=== PATIENT | female | born 1990 | race Caucasian/White ===

== ENCOUNTER 2019-04-17 15:56 | Inpatient (IN) ==
[2019-04-17] MEDS ORDERED: ZOFRAN IV ONE (17:38)
[2019-04-17] MEDS ORDERED: NS 1,000 ML IV ONE (17:38)
[2019-04-17] MEDS ORDERED: TORADOL IV ONE (17:38)
[2019-04-17 17:43] LABS: URINE SOURCE CLEAN CATCH
[2019-04-17 17:51] LABS: BILIRUBIN URINE NEGATIVE (NEGATIVE); BLOOD URINE NEGATIVE (NEGATIVE); COLOR ORANGE; GLUCOSE URINE NEGATIVE (NEGATIVE); KETONE URINE 20 mg/dL (NEGATIVE); LEUKOCYTES URINE TRACE (NEGATIVE); NITRITE URINE NEGATIVE (NEGATIVE); PROTEIN URINE 100 mg/dL (NEGATIVE); SP GRAVITY URINE 1.037; TURBIDITY URINE TURBID (CLEAR); UROBILINOGEN URINE 3 mg/dL (NORMAL)
[2019-04-17 17:53] LABS: UR EPITHELIAL CELLS >10 /HPF (<10); URINE BACTERIA 3+ /HPF; URINE RBC <10 /HPF (<10); URINE WBC TNTC /HPF (<10)
[2019-04-17 17:59] LABS: BASO# 0.04 X1000 (0.0-0.2); BASO% 0.3 % (0.0-0.8); EOS# 0.19 X1000 (0.0-0.7); EOS% 1.5 % (0.0-10.0); HEMATOCRIT 41.4 % (37.0-47.0); HEMOGLOBIN 13.3 g/dL (12.0-16.0); IMM GRAN# 0.03 X1000 (0.0-0.04); IMM GRAN% 0.2 % (0.0-0.5); LYMPH# 1.14 X1000 (1.2-3.4); LYMPH% 8.7 % (20.5-51.1); MCHC 32.1 g/dL (33-37); MONO# 0.56 X1000 (0.11-0.59); MONO% 4.3 % (1.7-9.3); MPV 9.5 FL (7.4-10.4); NEUT# 11.09 X1000 (1.4-6.5); PLT 325 X1000 (130-400); RBC 4.93 XMIL (4.2-5.4); RDW 15.1 % (11.5-14.5); WBC 13.05 X1000 (4.8-10.8)
[2019-04-17 18:00] LABS: UR AMPHETAMINES QUAL NONE DETECTED (NONE DETECT); UR BARBITUATES QUAL NONE DETECTED (NONE DETECT); UR BENZODIAZEPIN QUAL NONE DETECTED (NONE DETECT); UR CANNABINOIDS QUAL NONE DETECTED (NONE DETECT); UR COCAINE QUAL NONE DETECTED (NONE DETECT); UR METHADONE QUAL NONE DETECTED (NONE DETECT); UR OPIATES QUAL NONE DETECTED (NONE DETECT); UR OXYCODONE QUAL NONE DETECTED (NONE DETECT); UR PCP QUAL NONE DETECTED (NONE DETECT)
--- NOTE | 2019-04-17 18:06 | PROVIDER DOCUMENTATION ---
This chart was entered by Lauren Haynes Scribe, acting as scribe for Celestina Mejia MD. HPI-Abdominal Pain/GI Problem <SamJona Del Rio. - Last Filed: 04/17/19 20:08> - General Source: patient - History of Present Illness-ABD Nature of Presenting Problems: Patient is a 28 y/o female presenting to the ED today c/o N/V and abdominal pain. Patient reports onset of symptoms 2-3 days ago. Patient reports history of Crohn's. Patient reports it has been " a few months" since her last flare-up. Patient reports she was taking Remicaid but stopped and has not been taking any medication to manage her Crohn's since. Patient reports she has not had a bowel movement in a few days and thinks she may be constipated. Patient denies all other signs/symptoms. Abdominal Pain Onset Location: reports: RLQ Quality of Pain: reports: aching Onset/Duration: reports: 3 days ago Timing: reports: still present Associated Symptoms: reports: constipation, nausea, vomiting. denies: diarrhea Last BM: 3 days ago Bruising or Bleeding Gums?: No Similar Symptoms Previously?: No Recently seen or treated by another doctor?: No <Celestina Mejia - Last Filed: 04/18/19 08:45> - General Chief Complaint: Nausea/Vomiting Stated Complaint: N/V Time Seen by Provider: 04/17/19 17:13 Allergies/Adverse Reactions: Patient Allergies Allergy/AdvReac Type Severity Reaction Status Date / Time Sulfa (Sulfonamide Allergy Unknown Verified 06/29/17 17:06 Antibiotics) Home Medications: Home Medication List Medication Instructions Recorded Confirmed Last Taken Type Amoxicillin 500 mg PO TID 04/17/19 04/17/19 1 Day Ago History ~04/16/19 Buprenorphine HCl/Naloxone HCl 1 ea SUBLINGUAL QAM 04/17/19 04/17/19 04/17/19 History [Suboxone 8 mg/2 mg Sl Film] Buspirone [Buspar] 15 mg PO BID 04/17/19 04/17/19 1 Day Ago History ~04/16/19 Escitalopram Oxalate [Lexapro] 10 mg PO QAM 04/17/19 04/17/19 1 Day Ago History ~12/29/19 Omeprazole 40 mg PO QAM 04/17/19 04/17/19 1 Day Ago History ~04/16/19 Review of Systems - Adult - REVIEW OF SYSTEMS - ADULT Constitutional: denies: chills, fever Eyes: reports: no symptoms reported Ears, Nose, Mouth & Throat: reports: no symptoms reported Cardiovascular: denies: chest pain Respiratory: denies: cough, shortness of breath Gastrointestinal: reports: abdominal pain, constipation, nausea, vomiting. faisal es: diarrhea Genitourinary: reports: no symptoms reported Musculoskeletal: reports: no symptoms reported Integumentary: reports: no symptoms reported Neurological: reports: no symptoms reported Psychiatric: reports: no symptoms reported Endocrine: reports: no symptoms reported Hematologic/Lymphatic: reports: no symptoms reported Allergic/Immunologic: reports: no symptoms reported All Other Systems: Reviewed and Negative <Celestina Mejia - Last Filed: 04/18/19 08:45> Past History - Adult - PAST MEDICAL HISTORY-ADULT Review of Records: reports: Old Records Reviewed, Nursing Assessment Review, Medications Reviewed, Social history reviewed & non-contributory. Major Childhood Illnesses: reports: denies history Cardiovascular: reports: denies history Respiratory: reports: denies history Gastrointestinal: reports: Crohn's Obstetrical/Gynecological: reports: denies history Genitourinary: reports: denies history Musculoskeletal: reports: denies history Neurological: reports: denies history Psychiatric: reports: denies history Endocrine/Immune: reports: denies history Other Conditions: reports: denies history <Celestina Mejia - Last Filed: 04/18/19 08:45> Physical Exam-General - PHYSICAL EXAM-ADULT Initial Vital Signs Reviewed: Yes - CONSTITUTIONAL General Appearance: appears well, alert, no apparent distress - EYES Eyes: PERRL/EOMI - HEAD, EARS, NOSE, MOUTH & THROAT HENMT: normocephalic/atraumatic, moist mucous membranes - NECK Neck: non-tender, full range of motion, supple - RESPIRATORY Respiratory: lungs clear, normal breath sounds, no respiratory distress, no accessory muscle use - CARDIOVASCULAR Cardiovascular: regular rate, rhythm, no edema - GASTROINTESTINAL (ABDOMEN) Abdominal Exam: soft, tenderness (right, lower abdomen) - LYMPHATIC Lymphatic: no adenopathy - MUSCULOSKELETAL Back Exam: normal inspection, no CVA tenderness, no vertebral tenderness Extremity: normal range of motion, non-tender, normal gait, normal inspection - SKIN Integumentary: normal color, normal turgor, warm/dry - NEUROLOGIC Neurologic: grossly normal - PSYCHIATRIC Psych/Mental Status: normal mood/affect, normal thought content, normal thought process <Celestina Mejia - Last Filed: 04/18/19 08:45> Progress - PLAN OF CARE/RESULTS Progress/Plan/Lab Results: Vital Signs - 8 hr 04/17/19 16:05 Temperature 98.6 F Pulse Rate 77 Respiratory Rate 18 Blood Pressure 92/63 O2 Sat by Pulse Oximetry 96 Bedside Urine ED: Urine Bedside Start: 04/17/19 17:32 Freq: NOW Status: Active Protocol: Activity Type Activity Date Activity User E-Sign Co-Sign Detail Recorded Client Recorded Date Recorded By Document 04/17/19 17:33 [id number] 04/17/19 17:34 [id number] 04/17/19 17:33 Point of Care [Bedside Point of Care] -Lot # [id number] - Results Negative -Control Line Visible? Yes ED: Urine Bedside Start: 04/17/19 17:36 Freq: ORDERED Status: Active Protocol: Activity Type Activity Date Activity User E-Sign Co-Sign Detail Recorded Client Recorded Date Recorded By Document 04/17/19 17:49 [id number] 04/17/19 17:49 [id number] 04/17/19 17:49 -Lot # [id number] - Results Negative -Control Line Visible? Yes Laboratory Results - last 24 hr 04/17/19 04/17/19 04/17/19 17:30 17:30 17:46 WBC 13.05 H RBC 4.93 Hgb 13.3 Hct 41.4 MCV 84.0 MCH 27.0 MCHC 32.1 L RDW Std Deviation 15.1 H Plt Count 325 MPV 9.5 Immature Gran % (Auto) 0.2 Neut % (Auto) 85.0 H Lymph % (Auto) 8.7 L [place] % (Auto) 4.3 Eos % (Auto) 1.5 Baso % (Auto) 0.3 Immature Gran # (Auto) 0.03 Neut # (Auto) 11.09 H Lymph # (Auto) 1.14 L [place] # (Auto) 0.56 Eos # (Auto) 0.19 Baso # (Auto) 0.04 Sodium Potassium Chloride Carbon Dioxide Anion Gap BUN Creatinine Estimated GFR/1.73 m2 BUN/Creatinine Ratio Glucose Calculated Osmolality Calcium Total Bilirubin AST ALT Alkaline Phosphatase Total Protein Albumin Globulin Albumin/Globulin Ratio Lipase Urine Source CLEAN CATCH Urine Color ORANGE Urine Turbidity TURBID Urine pH 6.0 Ur Specific [place] 1.037 Urine Protein 100 A Ur Glucose (Stick) NEGATIVE Ur Ketones (Stick) 20 A Urine Blood NEGATIVE Urine Nitrite NEGATIVE Urine Bilirubin NEGATIVE Urobilinogen Dipstick 3 A Urine Leukocytes TRACE A Urine WBC (Auto) TNTC A Urine RBC (Auto) <10 U Epithel Cells (Auto) >10 A Urine Bacteria (Auto) 3+ Urine Crystals Not Reportable Small Round Cells Not Reportable Urine Casts Not Reportable Urine Yeast-like Cells Not Reportable Urine Opiates Screen NONE DETECTED Ur Oxycodone Screen NONE DETECTED Ur Methadone, Qual NONE DETECTED Ur Barbiturates Screen NONE DETECTED Ur Phencyclidine Scrn NONE DETECTED Ur Amphetamines Screen NONE DETECTED U Benzodiazepines Scrn NONE DETECTED Urine Cocaine Screen NONE DETECTED U Cannabinoids Screen NONE DETECTED 04/17/19 17:46 WBC RBC Hgb Hct MCV MCH MCHC RDW Std Deviation Plt Count MPV Immature Gran % (Auto) Neut % (Auto) Lymph % (Auto) [place] % (Auto) Eos % (Auto) Baso % (Auto) Immature Gran # (Auto) Neut # (Auto) Lymph # (Auto) [place] # (Auto) Eos # (Auto) Baso # (Auto) Sodium 136 Potassium 4.7 Chloride 100 Carbon Dioxide 21 L Anion Gap 15 BUN 7 L Creatinine 0.5 Estimated GFR/1.73 m2 > 60 BUN/Creatinine Ratio 14 Glucose 117 H Calculated Osmolality 271 Calcium 9.1 Total Bilirubin 0.28 AST 58 H ALT 38 H Alkaline Phosphatase 80 Total Protein 7.4 Albumin 3.9 Globulin 3.5 Albumin/Globulin Ratio 1.1 Lipase 22 Urine Source Urine Color Urine Turbidity Urine pH Ur Specific [place] Urine Protein Ur Glucose (Stick) Ur Ketones (Stick) Urine Blood Urine Nitrite Urine Bilirubin Urobilinogen Dipstick Urine Leukocytes Urine WBC (Auto) Urine RBC (Auto) U Epithel Cells (Auto) Urine Bacteria (Auto) Urine Crystals Small Round Cells Urine Casts Urine Yeast-like Cells Urine Opiates Screen Ur Oxycodone Screen Ur Methadone, Qual Ur Barbiturates Screen Ur Phencyclidine Scrn Ur Amphetamines Screen U Benzodiazepines Scrn Urine Cocaine Screen U Cannabinoids Screen Orders Category Date Time Status ED: Urine Bedside ORDERED Care 04/17/19 17:36 Active ED: Urine Bedside NOW Care 04/17/19 17:[address] ABD/PELVIS W/IV CONT ONLY [CT] Stat Exams 04/17/19 17:36 Completed CBC WITH ELECTRONIC DIFF [HEME] Stat Lab 04/17/19 17:46 Completed COMPREHENSIVE METABOLIC PANEL [CHEM] Stat Lab 04/17/19 17:46 Completed LIPASE [CHEM] Stat Lab 04/17/19 17:46 Completed URINALYSIS W/POSS RFLX CULT [URINALYSIS] Stat Lab 04/17/19 17:30 Completed URINE CULTURE [RM] Routine Lab 04/17/19 17:30 Received URINE DRUG SCREEN Stat Lab 04/17/19 17:30 Completed URINE MANUAL MICROSCOPIC [URINALYSIS] Stat Lab 04/17/19 17:30 Completed 0.9% Sodium Chloride Inj [Ns] 1,000 ml Med 04/17/19 17:38 Discontinued IV 999 mls/hr CefTRIAXONE [Rocephin] 1 gm Med 04/17/19 18:23 Discontinued 0.9% Sodium Chloride Inj [Ns] 50 ml IV NOW Ketorolac [Toradol] Med 04/17/19 17:38 Discontinued 30 mg IV NOW ONE Ondansetron [Zofran] Med 04/17/19 17:38 Discontinued 4 mg IV NOW ONE Result Diagrams: 04/17/19 17:46 04/17/19 17:46 - REASSESSMENT Reassessment #1 Time Reassessed: 19:35 Status: unchanged Reassessment Comment: distended tender abdomen, awaiting CT report - CT/MRI 1 CT Study: Abdomen, Pelvis CT Results: small bowel obstruction with stricture - CONSULTS/PCP/HOSPITALIST Notification #1 *Consult/PCP/Hospitalist*: Dr. Mar Time Discussed: 19:45 Reason/Comments: consult GI #2 Consult: Dr. Butler, GI hotel operation manager Time Discussed: 19:50 Reason/Comments: admit to hospitalist, consult Dr. Khan Consult Disposition: Admit #3 Consult: Dr. Shrestha, hospitalist Time Discussed: 20:00 Consult Disposition: Admit <Jona Vargas - Last Filed: 04/17/19 20:08> - PLAN OF CARE/RESULTS Progress/Plan/Lab Results: Vital Signs - 8 hr 04/17/19 16:05 Temperature 98.6 F Pulse Rate 77 Respiratory Rate 18 Blood Pressure 92/63 O2 Sat by Pulse Oximetry 96 Result Diagrams: 04/18/19 06:44 04/18/19 06:44 - CHANGE OF SHIFT REPORT (ED Provider) 1 Report Given and Care Transferred to:: Dr Vargas Time of Transfer: 19:00 Items Pending: CT/MRI Results <Celestina Mejia - Last Filed: 04/18/19 08:45> Departure - Departure Date of Disposition Decision: 04/17/19 Time of Disposition Decision: 20:10 Certified Medical Emergency: Emergent <Jona Vargas - Last Filed: 04/17/19 20:08> - Departure Certified Medical Emergency: Emergent - Critical Care Note This patient required my direct & personal management of CC.: No <Celestina Mejia - Last Filed: 04/18/19 08:45> - Departure DIAGNOSIS: Small bowel obstruction, Colonic stricture Crohn disease Qualifiers: Gastrointestinal tract location: small intestine Digestive disease complication type: with intestinal obstruction Qualified Code(s): K50.012 - Crohn's disease of small intestine with intestinal obstruction UTI (urinary tract infection) Qualifiers: Urinary tract infection type: site unspecified Hematuria presence: without hematuria Qualified Code(s): N39.0 - Urinary tract infection, site not specified Disposition: ADMITTED INPATIENT 09 Condition: Stable Attestation - Physician/ TRE Attestation Patient care was provided by Advanced Practice Provider:: No The physician spent face to face time with patient:: Yes Advanced Practice Provider documentation review:: Supervising physician onsite and consulted in the evaluation and care of this patient. The physician did have a face to face encounter with the patient. <Celestina Mejia - Last Filed: 04/18/19 08:45> This chart was documented by the indicated scribe, (Lauren Haynse Scribe) and accurately reflects the services I performed and decisions made by Jackie cavanaugh Rachel M., MD, as attested by the provider's signature.
[2019-04-17] MEDS ORDERED: ROCEPHIN 1 GM in NS 50 ML IV ONE (18:23)
[2019-04-17 18:44] LABS: AGAP 15; ALB/GLOB RATIO 1.1; ALBUMIN 3.9 g/dL (3.5-5.0); ALKALINE PHOSPHATASE 80 U/L (32-104); BUN 7 mg/dL (8-22); CALCIUM 9.1 mg/dL (8.8-10.2); CHLORIDE 100 mmol/L (98-107); COSMO 271; CREATININE 0.5 mg/dL (0.5-0.9); ESTIMATED GFR > 60; GLUCOSE 117 mg/dL (70-104); GOT 58 U/L (10-30); GPT 38 U/L (10-36); LIPASE 22 U/L (13-60); POTASSIUM 4.7 mmol/L (3.5-5.1); SODIUM 136 mmol/L (136-145); TCO2 21 mmol/L (25-35); TOTAL BILIRUBIN 0.28 mg/dL (0.20-1.00); TOTAL PROTEIN 7.4 g/dL (6.3-8.3)
--- NOTE | 2019-04-17 19:27 | Diag Imaging Result Doc PS360 ---
EXAM: CT ABD/PELVIS W/IV CONT ONLY 04/17/2019 HISTORY: abd pain, Crohn's TECHNIQUE: This exam was performed using automated exposure control, adjustment of mA or kV according to patient size, and/or use of iterative reconstruction technique. COMMENT: The visualized portion of the chest is unremarkable and unchanged since the previous study of 06/29/2017. The liver, spleen, adrenal glands, and pancreas are within normal limits. There has been cholecystectomy. There is some retained fluid in the stomach particularly in the fundus. The kidneys are without evidence of hydronephrosis or mass. The aorta is not distended. There is marked dilatation of small bowel loops proximal to the terminal ileum. There has been apparent resection of the terminal ileum with an anastomosis near the ileocecal valve. There is also apparently been appendectomy. There is a hernia in the right lower quadrant into which portions of the ascending colon herniate. Previously there was only fat in this hernia. The colon is not distended. Pelvis: There is some stool in the rectum. There is a small amount of free fluid in the cul-de-sac. The urinary bladder is not distended. The regional skeleton appears to be intact. IMPRESSION: Partial small bowel obstruction due to stricture in the distal ileum. Electronically signed by Kemar Ramirez 04/17/2019 7:25 PM
[2019-04-17] MEDS ORDERED: HURRICAINE SPRAY TOP ONE (20:50)
--- NOTE | 2019-04-17 21:57 | Diag Imaging Result Doc PS360 ---
EXAM: CHEST-PORTABLE 04/17/2019 HISTORY: tube placement TECHNIQUE: AP portable at 2146 COMMENT: There is an NG tube with its tip in the stomach. Lungs are clear and the heart and primary vascularity are within normal limits. IMPRESSION: No acute disease. Electronically signed by Kemar Ramirez 04/17/2019 9:55 PM
[2019-04-17] MEDS ORDERED: OFIRMEV 1000 MG/ISOTONIC SOLN 1,000 MG/100 ML BOTTLE IV PRN (23:22)
[2019-04-17 23:24] LABS: URINE SOURCE CLEAN CATCH
[2019-04-17 23:28] LABS: BILIRUBIN URINE NEGATIVE (NEGATIVE); BLOOD URINE TRACE (NEGATIVE); COLOR YELLOW; GLUCOSE URINE NEGATIVE (NEGATIVE); KETONE URINE TRACE mg/dL (NEGATIVE); LEUKOCYTES URINE NEGATIVE (NEGATIVE); NITRITE URINE NEGATIVE (NEGATIVE); PH URINE 7.5; PROTEIN URINE 100 mg/dL (NEGATIVE); TURBIDITY URINE CLEAR (CLEAR); UROBILINOGEN URINE 2 mg/dL (NORMAL)
[2019-04-17 23:29] LABS: UR EPITHELIAL CELLS <10 /HPF (<10); URINE BACTERIA NEGATIVE /HPF; URINE RBC <10 /HPF (<10); URINE WBC <10 /HPF (<10)
[2019-04-17] MEDS: NICODERM PATCH TD PRN (23:32)
[2019-04-17] MEDS: ZOFRAN IV PRN (23:32)
[2019-04-17] MEDS: PROTONIX IV SCH (23:32)
[2019-04-18] MEDS ORDERED: CHLORASEPTIC SPRAY MT PRN (00:32)
[2019-04-18] MEDS ORDERED: TYLENOL PR PRN ×2 (01:07→08:00)
[2019-04-18] MEDS ORDERED: OFIRMEV 1000 MG/ISOTONIC SOLN 1,000 MG/100 ML BOTTLE IV ONE (01:20)
[2019-04-18] MEDS: ZOFRAN IV PRN ×5 (03:20→20:46)
[2019-04-18] MEDS: NS 1,000 ML IV SCH ×2 (03:20→16:27)
[2019-04-18] MEDS ORDERED: CLINDAMYCIN 600 MG/D5W 600 MG/50 ML IVPB IV SCH (06:30)
--- NOTE | 2019-04-18 07:18 | HISTORY AND PHYSICAL ---
PRIMARY CARE PROVIDER: Micah Tubbs MD, in [place]. FITNESS CLUB MANAGER: Willis Romeo MD CHIEF COMPLAINT: Abdominal pain with nausea and vomiting. HISTORY OF PRESENT ILLNESS: Ms. Dubose is a 28-year-old female with a past medical history of Crohn's disease. She previously was reportedly taking Remicade for treatment of this, though has taken herself off of this due to she kept having problems with dental infections, specifically dental abscesses. In the past, she has also taken Humira. The patient reports she stopped taking her Remicade a few months ago. She reports her last Crohn's flare up was a few months ago as well. She states that for approximately 2 to 3 days now she has been having generalized abdominal pain that is an achy, burning, and crampy type pain in nature. The patient does report that the pain is the worst in her periumbilical area. She has had associated nausea and vomiting. She denies any diarrhea. Actually, she states she might be constipated. She has not had a bowel movement reportedly in 3 days. She denies any hematemesis, hematochezia, or melena. She does report that her emesis has been brownish yellow in color. She has reported some body aches and chills and denied any known or subjective fever. She denied any headache, dizziness, chest pain, shortness of breath, or cough. The patient reported that she had had some urinary frequency. She reports that she does have a history of getting frequent urinary tract infections. In the ER, the first urinalysis sample that was collected did show greater than 10 epithelial cells. Given this, we did have it re-collected with emphasized instructions given to the patient about how to collect a clean catch urine specimen. Upon recheck urinalysis, it only was positive for protein, trace ketones, and trace blood. It was negative for nitrites, leukocytes, white blood cells, or bacteria. The patient does report that she has some occasional swelling in her legs. Her mother reports that they do appear that they are slightly swollen now, though she does not have any edema noted. She denied any numbness, tingling, or pain in the extremities. Upon reviewing the patient's medication list, it was noted that she had an antibiotic of amoxicillin that was noted. She states that she did just recently start taking this for an abscessed tooth on the right upper side of her mouth. Upon further evaluation in the ER, the patient did have some mild leukocytosis noted with white blood cell count of 13,050, though she has been afebrile since arriving to the ER. A CT of the abdomen and pelvis was performed, which did show that there were some stool in the rectum, and there was a small amount of free fluid in the cul-de-sac. The urinary bladder was not distended. There was a partial small bowel obstruction due to stricture in the distal ileum. An NG tube was placed in the ER. This was confirmed with appropriate placement in the stomach per x-ray. We have placed this to low intermittent wall suction. The patient does have approximately 300 mL of brownish colored gastric content noted to suction canister at bedside. The patient is reporting abdominal pain. She also does have some guarding as well. Dr. Mar with surgery was notified of the patient, as well as Dr. Khan, who is on-call for gastroenterology. The patient has been placed on the surgical floor with telemetry. REVIEW OF SYSTEMS: A 14-point review of systems was conducted with the patient, and all were negative except for pertinent positives mentioned above in the HPI. PAST MEDICAL HISTORY: 1. History of Crohn's disease, previously on Humira and most recently on Remicade. The patient states she took herself off of this due to she was having recurrent problems with dental abscesses and reportedly abscesses near or around her buttock. I am not sure if these are perianal or cutaneous abscesses. 2. Nicotine dependence. 3. History of opioid dependence, currently on Suboxone. 4. History of intraabdominal abscesses in the setting of use of Humira in 2015, requiring prolonged hospitalization, requiring ileostomy and ileostomy reversal. PAST SURGICAL HISTORY: 1. Cholecystectomy. 2. Appendectomy. 3. Partial ileostomy in 2014, and at that time she had intraabdominal abscesses at 3 different spots, followed by ileostomy reversal 3 months later. 4. Fissure repair. SOCIAL HISTORY: The patient is a 1 [id number] smoker. She has smoked for approximately 6 years. Though there was mention in previous history and physical of social alcohol use, she denies any of this in the present. There is a history of marijuana use in the past. She also does have opioid dependency and does take daily Suboxone. FAMILY HISTORY: Positive for her sister having ulcerative colitis and another cousin has ulcerative colitis as well. Her mother and father did not have any known medical problems. ALLERGIES: The patient has allergies to sulfa. HOME MEDICATIONS: 1. Amoxicillin 500 mg p.o. t.i.d. This has reportedly been recently prescribed for treatment of a dental abscess. 2. Suboxone 8 mg 4/2 mg sublingual films 1 p.o. every a.m. 3. BuSpar 15 mg p.o. b.i.d. 4. Lexapro 10 mg p.o. every a.m. 5. Omeprazole 40 mg p.o. every a.m. DIAGNOSTIC DATA: White blood cell count is 13,050, hemoglobin 13.3, hematocrit 41.4, platelet count is 325,000. Sodium 136, potassium 4.7, chloride 100, serum bicarbonate is 21, BUN 7, creatinine 0.5 with a GFR greater than 60, glucose 116, calcium 9.1. Liver function tests within normal limits except ALT is slightly elevated at 58 and AST is slightly elevated at 38. Lipase is 22. Urine drug screen was negative. Urinalysis initial was obtained via clean catch, though did have greater than 10 epithelial cells, there was concern whether it might be a contaminated specimen. We did recollect this with emphasis on correct collection for clean catch specimen to the patient. Recheck urinalysis was positive for protein, trace blood, and keystones, though was negative for nitrites, leukocytes, white blood cells, or bacteria. CT of the abdomen and pelvis did show some stool in the rectum. There was a small amount of free fluid in the cul-de-sac. The urinary bladder was not distended. There was a partial small bowel obstruction due to stricture in the distal ileum. Please see full CT report for all details findings. After NG tube placement, a portable chest x-ray was obtained which did show that the NG tube did have its tip in the stomach. The lungs were clear, and the heart and primary vascularity were within normal limits. These are per Radiology. PHYSICAL EXAMINATION: VITAL SIGNS: Temperature 97.9 degrees, heart rate 93, respirations 20, blood pressure is 109/71, with a MAP of 79, oxygen saturation is 98% on room air. GENERAL: Ms. Dubose is a pleasant 28-year-old female. She was resting in the ER stretcher. She was in no acute distress. She was awake, alert, and able to answer questions appropriately. HEENT: Head atraumatic, normocephalic. Pupils are equal, round, reactive to light, and were 3 mm bilaterally and brisk. Oral mucosa was moist. Oropharynx is clear. The patient does have dental caries noted, as well as some teeth are broken as well. NECK: Supple. Trachea midline. CARDIOVASCULAR: Patient has S1-S2 present. No murmurs, gallops, rubs appreciated. Regular rate and rhythm. PULMONARY: Patient has symmetrical chest expansion bilaterally. Lung sounds are clear to auscultation in bilateral full piña. ABDOMEN: Soft, does not appear to be distended, though the patient does have generalized tenderness noted. She had guarding as well. Whenever I would go to get near her abdomen, whenever I would put my hand or stethoscope near her abdomen. She does report her pain and tenderness are worse in the periumbilical area. EXTREMITIES: No cyanosis or edema noted. Pulse, motor, and sensory were intact in all extremities. Radial and pedal pulses are 2+ bilaterally. INTEGUMENTARY: The patient's skin is pink, warm, and dry. NEUROLOGICAL: Patient is alert and oriented to person, place, time, and situation. She is able move all extremities. There are no focal neurological deficits noted. ASSESSMENT AND PLAN: 1. Partial small bowel obstruction. The patient is reporting abdominal pain and nausea and vomiting for approximately 3 days now. She will be placed nothing by mouth. She has a nasogastric tube placed at this time. It is placed to low intermittent wall suction. We will place orders for as needed antiemetics. We also placed orders for pain medication of Tylenol, and we have continued her Suboxone. We will continue with gentle intravenous hydration with normal saline at 100 mL/hour. We have ordered Protonix intravenously every 24 hours. We have placed a consult with Dr. Mar with surgery. We will await his evaluation and further recommendations for management. 2. History of Crohn's disease. We have placed a consult with Dr. Romeo who she reports follows her for her Crohn's disease. We will continue with treatment as mentioned per number 1 with antiemetics, pain medication, and fluids. We will await gastroenterology evaluation and further recommendations for management. 3. Recent reported diagnosis of a right dental abscess on her upper right side of her mouth. She was recently placed on amoxicillin. This was prescribed on the , though she is not quite sure how many doses of this she has left. Given that she is nothing by mouth at this time, we will place her on intravenous antibiotics for coverage of her dental abscess. 4. Nicotine dependence. We have placed orders for a nicotine patch as needed. We will continue to aids counselor the patient throughout her admission and upon discharge on smoking cessation. 5. History of opioid dependence. We have continued the patient's Suboxone. She was asking for additional pain medicines. I did discuss this with Dr. Shrestha, and he did not want to administer any other additional opioid pain medicines at this time. I did speak to the patient about this and explained to her why. We have placed as needed orders for Ativan, and we will continue her Suboxone as regularly prescribed. 6. Deep vein thrombosis prophylaxis will be provided with sequential compression devices. The patient has been placed on the surgical floor with telemetry. She will have vital signs every 8 hours. We will do strict intake and output. We will repeat a CBC, CMP, magnesium in the morning. We have also added a CRP and sedimentation rate. We will also repeat an abdomen flat and upright in the morning as well. Further orders and recommendations pending hospital course, diagnostic studies, and physician evaluation. Dictated by BERNARDA Oseguera for Juan Shrestha MD I have performed a face to face diagnostic evaluation. Labs/ Xrays- reviewed. Exam- Chest clear, CV- regular, Abd- diffuse tenderness. A/P- Small bowel obstruction- Admit, NPO, IV fluids, Surgery consult. Dr. Shrestha cc: Juan Shrestha MD [facility]
[2019-04-18 07:22] LABS: BASO# 0.03 X1000 (0.0-0.2); BASO% 0.3 % (0.0-0.8); EOS# 0.16 X1000 (0.0-0.7); EOS% 1.6 % (0.0-10.0); HEMATOCRIT 39.5 % (37.0-47.0); HEMOGLOBIN 12.5 g/dL (12.0-16.0); LYMPH# 1.27 X1000 (1.2-3.4); LYMPH% 12.5 % (20.5-51.1); MCH 26.9 PG (27-31); MCHC 31.6 g/dL (33-37); MCV 84.9 FL (81-99); MONO% 6.9 % (1.7-9.3); MPV 9.6 FL (7.4-10.4); NEUT# 7.98 X1000 (1.4-6.5); NEUT% 78.7 % (42.2-75.2); PLT 300 X1000 (130-400); RBC 4.65 XMIL (4.2-5.4); RDW 15.1 % (11.5-14.5); WBC 10.14 X1000 (4.8-10.8)
[2019-04-18 07:38] LABS: AGAP 12; ALB/GLOB RATIO 1.2; ALBUMIN 3.7 g/dL (3.5-5.0); ALKALINE PHOSPHATASE 79 U/L (32-104); BUN 10 mg/dL (8-22); C REACTIVE PROT QUANT 4.55 mg/L (0.00-5.00); CALCIUM 8.7 mg/dL (8.8-10.2); CHLORIDE 100 mmol/L (98-107); COSMO 273; CREATININE 0.5 mg/dL (0.5-0.9); ESTIMATED GFR > 60; GLUCOSE 104 mg/dL (70-104); GOT 29 U/L (10-30); GPT 31 U/L (10-36); MAGNESIUM 2.3 mg/dL (1.5-2.7); POTASSIUM 4.1 mmol/L (3.5-5.1); SODIUM 137 mmol/L (136-145); TCO2 25 mmol/L (25-35); TOTAL BILIRUBIN 0.38 mg/dL (0.20-1.00); TOTAL PROTEIN 6.7 g/dL (6.3-8.3)
[2019-04-18 08:31] LABS: SED RATE 11 mm/hr (0-20)
[2019-04-18] MEDS ORDERED: TORADOL IV PRN (08:34)
[2019-04-18] MEDS ORDERED: SUBOXONE 8 MG/2 MG FILM SL SCH (09:00)
--- NOTE | 2019-04-18 09:09 | Diag Imaging Result Doc PS360 ---
EXAM: ABDOMEN FLAT/UPRIGHT HISTORY: SBO TECHNIQUE: Two views COMPARISON: None. FINDINGS: There are dilated small bowel loops with air-fluid levels in the left abdomen. Stool is found in the proximal colon and there are sutures in the right lower quadrant. No organomegaly. There are surgical clips in the right upper quadrant. IMPRESSION: Small bowel obstruction Electronically signed by Claude Dodson 04/18/2019 9:07 AM
--- NOTE | 2019-04-18 12:10 | GASTROENTEROLOGY CONSULTATION ---
DATE: 04/18/2019 REASON FOR CONSULTATION: Crohn disease, small bowel obstruction. HISTORY OF PRESENT ILLNESS: Ms. Celestina Dubose is a 28-year-old woman with a past medical history of ileal Crohn disease with perianal involvement, status post ileocolonic resection, who presents with progressive abdominal pain and nausea, vomiting, constipation. The patient was diagnosed with Crohn disease back in 2012. She was initially treated with Humira and steroids. This was complicated by intraabdominal abscesses from unclear etiology. She underwent ileocolonic resection at that time and drainage of abscesses. She apparently had a bowel perforation at that time requiring 2 additional exploratory laparoscopies in 2014 and was subsequently started on Remicade in the last couple of years. She has been on Remicade received by Dr. Blankenship up until May 2018. She stopped it, self-discontinued it because of recurrent infections, particularly dental infections, and has not been on any treatment since May. Her last colonoscopy she believes was in 2017. She is followed by Dr. Romeo as an outpatient. However, she is transitioning her care to a physician in [place] starting next year. She was last seen by Dr. Romeo in December 2018 who had recommended a diagnostic EGD and colonoscopy. Of note, other notable history, she does report severe worsening reflux over the last couple of months. Her bowel pattern she describes as being alternating constipation with diarrhea every couple of weeks. She describes feeling constipated for a week and then having sort of explosive diarrhea for several days with fecal incontinence. No rectal bleeding, melena, hematemesis. She does report intermittent vomiting of fecal material. No fevers, but notable chills. She has gained weight. Her last bowel movement was about 4 to 5 days ago. REVIEW OF SYSTEMS: As per HPI. Otherwise, other notable past medical history, she has some dental pain and is currently on amoxicillin for dental infection/abscess. PAST MEDICAL HISTORY: Ileal Crohn disease, status post ileocolonic resection, history of opioid dependence on Suboxone, GERD, abdominal hernias, perianal disease, chronic constipation, depression, tobacco abuse, history of vitamin B12 deficiency, history of chronic anemia, hyperlipidemia, endometriosis. PAST SURGICAL HISTORY: Cholecystectomy, appendectomy, resection of terminal ileum and partial colectomy in 2015 complicated by bowel perforations, status post exploratory laparoscopies x2 in 2014 with takedown of her ileostomy in 2014. She has had a fissure repair, perianal fissure repair x2 earlier this year, and a perianal abscess surgery in 2010. MEDICATIONS: She is on Suboxone, vitamin D, amoxicillin, Lexapro, omeprazole, buspirone, ibuprofen p.r.n., MiraLAX. ALLERGIES: To sulfa. FAMILY HISTORY: Of ulcerative colitis in her sister and cousin. No family history of GI malignancies. SOCIAL HISTORY: She smokes 1/2 pack to 1 pack per day, marijuana. No alcohol use. PHYSICAL EXAMINATION: General: The patient is ill-appearing, nontoxic, older than stated age, in no acute distress. HEENT: Sclerae anicteric. Moist mucous membranes. Poor dentition. No icterus. Neck: Supple. No JVD or lymphadenopathy. Cardiac: Regular. No murmurs. Lungs: Clear to auscultation bilaterally. No wheezing. Abdomen: Surgical scars are noted. Hypoactive bowel sounds. Mild tenderness to palpation throughout. No rebound or guarding. Extremities: No clubbing, cyanosis, or edema. Neurologic: Nonfocal. LABORATORIES: White count is 10.1 from 13 yesterday, hemoglobin 12.5 from 13.3, platelets of 300,000. ESR of 11, CRP of 4.5. Chemistries are within normal limits. LFTs were mildly elevated yesterday, AST of 58 and ALT of 38, now normal. Lipase 22. UA shows 100 protein, trace ketones and blood. Urine toxicology is negative. IMAGING: CT of the abdomen and pelvis with IV contrast shows marked dilation of small bowel loops proximal to the terminal ileum. There was apparent resection of the terminal ileum with anastomosis near the ileocecal valve, status post appendectomy, hernia in the right lower quadrant into which portions of the ascending colon herniate. The colon is not distended. There is some stool in the rectum. There is small amount of free fluid in the cul-de-sac. Chest x-ray shows normal placement of the NG tube in the stomach. No acute disease. Abdominal x-ray today shows persistent small bowel obstruction. ASSESSMENT AND PLAN: Ms. Aniyah Dubose is a 28-year-old woman with a history of opioid dependence, tobacco abuse, ileal Crohn disease, status post resection, complicated by abscess requiring prolonged antibiotics and exploratory laparoscopies x2, perianal disease, and chronic constipation, medication noncompliance, who presents with several days of obstipation, nausea, vomiting, diffuse abdominal pain, found to have small bowel obstruction, likely from inflammatory versus stricturing Crohn's at her anastomosis. She has not been on any treatment for her irritable bowel disease since May 2018, which was self-discontinued secondary to recurrent infections. She has not had any rectal bleeding or fevers. Labs here were notable for some mildly elevated LFTs and leukocytosis, elevated CRP. CT shows small bowel obstruction. No pulmonary disease. She was initially started on clindamycin and Toradol, which I discontinued both and started her on Solu-Medrol 60 every 24 hours and Zosyn for her empirically, as well as for her dental infection. Surgery has been consulted. We will monitor her supportively with nothing by mouth status, nasogastric tube to intermittent wall suction, IV fluids, antiemetics and pain control. We will trend her chemistries and CBC daily and monitor for signs of improvement. Ultimately, she will likely need to be put on a different therapy for her Crohn's. Other options include Entyvio and Stelara, which may be better in the setting of her recurrent infections. # SBO # Crohn's disease # Chronic constipation # N/V # Abdominal pain # Abnormal LFTs # Leukocytosis # Dental infection Thank you for this consult. We will follow with you. Please call with any questions or concerns. MYAH
[2019-04-18] MEDS: SOLU-MEDROL IV SCH (12:24)
[2019-04-18] MEDS: ZOSYN 3.375 GM in NS 50 ML IV SCH ×3 (12:24→22:41)
--- NOTE | 2019-04-18 13:56 | PROGRESS NOTE ---
DATE: 04/18/2019 SUBJECTIVE: Patient admitted with small bowel obstruction, history of Crohn's and ileal stricture which is likely the causative problem. Gastroenterology following, has patient on steroids and changed antibiotics from planned to Zosyn. Patient had recent dental abscess, was still on antibiotics for that, so giving antibiotics IV since she is in n.p.o. No signs of sepsis. PLAN: Continuing home Suboxone with low-dose morphine available if necessary. Attempting conservative management, but will involve surgery if she does not improve over the next couple days. Continue NG tube and monitor closely.
[2019-04-18] MEDS: MORPHINE IV PRN ×2 (15:48→19:54)
--- NOTE | 2019-04-18 17:25 | CONSULTATION ---
DATE OF CONSULTATION: 04/18/2019 NO DICTATION cc: Ginny Mar MD
--- NOTE | 2019-04-18 17:49 | CONSULTATION ---
DATE OF CONSULTATION: 04/18/2019 HISTORY OF PRESENT ILLNESS: Ms. Aniyah Dubose is a 28-year-old white female with Crohn disease and has had a prior operation in [place]. She has been seen by Dr. Romeo, but has been noncompliant with her Crohn's treatment. She was hospitalized last in June 2018 with a partial small bowel obstruction and is readmitted through our emergency department yesterday with another small bowel obstruction and we were asked to evaluate her. PAST MEDICAL AND SURGICAL HISTORY: She has had previous surgery of her distal ilium and cecum, which required a diverting temporary ileostomy, and this was done in [place] in the early 1999s. She has had a cholecystectomy. MEDICATIONS: She is noncompliant with her Remicade or Crohn's medications. ALLERGIES: No known drug allergies. SOCIAL HISTORY: She continues to smoke. She does have young children. Her parents were at the bedside. REVIEW OF SYSTEMS: A 14-point review of systems was performed and was essentially negative except for the history of present illness. FAMILY HISTORY: No family history of Crohn's in the family that the parents knew of. PHYSICAL EXAMINATION: General: On exam, Ms. Dubose is a young white female of good weight. She is awake, cooperative, no acute distress. HEENT: She does have an NG tube in with some fecal output. She has no jaundice. No oral lesions. Satisfactory dentition. Neck: No cervical or supraclavicular lymphadenopathy. Cardiac: Her heart has a regular rate. Lungs: Clear to auscultation and percussion bilaterally. Abdomen: Slightly distended, but not tightly so. She had some mild tenderness throughout. She has a midline incision that is well healed. She has a right-sided ileostomy scar. Rectal and Vaginal: Exams were not performed. Extremities: She does have palpable peripheral pulses. No peripheral edema. Neurological: She is alert and oriented x3 and appropriate. IMPRESSION: Crohn's exacerbation. PLAN: GI medicine has been consulted. Hopefully, this will resolve with IV steroids or Crohn's treatment to avoid repeat surgery in a patient with Crohn's at such a young age. I did discuss with her about the seriousness of ongoing Crohn's treatment and her to stop smoking. cc: Ginny Mar MD
[2019-04-18] MEDS: PROTONIX IV SCH (22:40)
[2019-04-18] MEDS: SODIUM CHLORIDE 0.9% INJ SCH (22:40)
[2019-04-19] MEDS: NS 1,000 ML IV SCH (03:16)
[2019-04-19] MEDS: ZOSYN 3.375 GM in NS 50 ML IV SCH ×4 (05:15→23:46)
[2019-04-19] MEDS: SUBOXONE 8 MG/2 MG SL SCH (08:54)
[2019-04-19] MEDS: SOLU-MEDROL IV SCH (08:55)
--- NOTE | 2019-04-19 08:55 | PROGRESS NOTE ---
DATE: 04/19/2019 SUBJECTIVE: Ms. Aniyah Dubose is a 28-year-old, white female, who is now hospital day 2. She was admitted with a Crohn's exacerbation. Her NG tube came out during the night. She did receive IV steroids per GI Medicine, and this morning she does look better. She is complaining of some acid reflux. Her abdomen remains somewhat distended, but not tightly, and she has had no bowel movement. Her white blood cell count has improved from 13 to 10. Her hematocrit is stable. Electrolytes are within normal limits. Her heart rate is 71, blood pressure 99/57, O2 saturation is 100%, she is afebrile. PLAN: I will give her IV Protonix because of her symptoms of acid reflux. Her NG tube has come out. I would not be quick to feed her until we know she has better bowel activity. She is on IV antibiotics. I have given her reading material on Crohn disease. We will follow along. cc: Ginny Mar MD
[2019-04-19] MEDS: ZOFRAN IV PRN (09:03)
[2019-04-19 09:31] LABS: BASO# 0.04 X1000 (0.0-0.2); BASO% 0.5 % (0.0-0.8); EOS# 0.11 X1000 (0.0-0.7); EOS% 1.3 % (0.0-10.0); HEMATOCRIT 34.6 % (37.0-47.0); HEMOGLOBIN 10.7 g/dL (12.0-16.0); IMM GRAN# 0.02 X1000 (0.0-0.04); IMM GRAN% 0.2 % (0.0-0.5); LYMPH# 2.34 X1000 (1.2-3.4); LYMPH% 26.9 % (20.5-51.1); MCH 26.9 PG (27-31); MCHC 30.9 g/dL (33-37); MCV 86.9 FL (81-99); MONO# 0.97 X1000 (0.11-0.59); MONO% 11.1 % (1.7-9.3); MPV 9.4 FL (7.4-10.4); NEUT# 5.23 X1000 (1.4-6.5); PLT 259 X1000 (130-400); RBC 3.98 XMIL (4.2-5.4); RDW 15.1 % (11.5-14.5); WBC 8.71 X1000 (4.8-10.8)
[2019-04-19 10:13] LABS: AGAP 11; ALB/GLOB RATIO 1.3; ALBUMIN 3.4 g/dL (3.5-5.0); ALKALINE PHOSPHATASE 59 U/L (32-104); BUN 14 mg/dL (8-22); CALCIUM 8.1 mg/dL (8.8-10.2); CHLORIDE 105 mmol/L (98-107); COSMO 277; CREATININE 0.6 mg/dL (0.5-0.9); ESTIMATED GFR > 60; GLUCOSE 76 mg/dL (70-104); GOT 14 U/L (10-30); GPT 20 U/L (10-36); POTASSIUM 4.2 mmol/L (3.5-5.1); SODIUM 139 mmol/L (136-145); TCO2 23 mmol/L (25-35); TOTAL BILIRUBIN 0.57 mg/dL (0.20-1.00)
[2019-04-19] MEDS: BUSPAR PO SCH ×2 (10:34→21:55)
[2019-04-19] MEDS: LEXAPRO PO SCH (10:34)
[2019-04-19] MEDS: NICODERM PATCH TD PRN (10:48)
--- NOTE | 2019-04-19 12:46 | Diag Imaging Result Doc PS360 ---
EXAM: KUB ABDOMEN HISTORY: Repeat for SBO TECHNIQUE: Single view COMPARISON: 04/18/2019 FINDINGS: There are dilated air-filled loops of bowel mid left abdomen. Prominent stool in the proximal colon. The gallbladder has been removed. No organomegaly. IMPRESSION: No interval improvement Electronically signed by Claude Dodson 04/19/2019 12:44 PM
--- NOTE | 2019-04-19 16:49 | PROGRESS NOTE ---
DATE: 04/19/2019 SUBJECTIVE: The patient is resting in bed. Not in any obvious distress. OBJECTIVE: Vital Signs: Temperature is 98.5 degrees, pulse is 70, respiratory rate 16, blood pressure 92/50, oxygen saturation is 99%. HEENT: She is atraumatic, normocephalic. Cardiovascular System: S1, S2. Respiratory System: Has evidence of good air entry bilaterally. Abdomen: Soft. Nontender. Bowel sounds hypoactive. Extremities: No evidence of edema. Central Nervous System: No obvious focal deficits noted. Labs: WBC 8.7, hematocrit is 34.6, with a platelet count of 259,000. Sodium is 139, potassium 4.2, chloride is 105, bicarb 23, BUN is 14, creatinine 0.6. ASSESSMENT AND PLAN: 1. Partial small-bowel obstruction. Maintain patient on nothing by mouth as well as intravenous fluids. Surgery team is following. 2. History of Crohn's disease. Aware. Gastroenterology is following. The patient is currently on intravenous steroids. 3. Tobacco use history. Nicotine patch recommended. 4. History of opioid dependence. Continue Suboxone. 5. Deep vein thrombosis prophylaxis. Sequential compression devices. cc: Herbert Roldan MD
[2019-04-19] MEDS: MIRALAX PO SCH (21:59)
--- NOTE | 2019-04-19 23:14 | PROVIDER PROGRESS NOTE ---
Progress Note S: NGT fell out overnight. No N/V/F, abdominal pain this morning. She reports some flatus overnight. She has appetite. O: Last Vital Signs Temp 98.2 F 04/19/19 19:39 Pulse 60 04/19/19 19:39 Resp 20 04/19/19 19:39 BP 112/65 04/19/19 19:39 Pulse Ox 20 L 04/19/19 19:39 Height 5 ft Weight 122 lb GEN: awake, alert, NAD HEENT: anicteric, MMM NECK: supple, no JVD PULM: CTAB, no wheezing CV: RRR no murmurs ABD: soft, NT, increased BS, mild tympany EXT: nocce NEURO: nonfocal LABS: 04/19/19 04/19/19 09:25 09:25 WBC 8.71 Hgb 10.7 L Plt Count 259 Sodium 139 Potassium 4.2 Chloride 105 Carbon Dioxide 23 L Anion Gap 11 BUN 14 Creatinine 0.6 EXAM: KUB ABDOMEN HISTORY: Repeat for SBO TECHNIQUE: Single view COMPARISON: 04/18/2019 FINDINGS: There are dilated air-filled loops of bowel mid left abdomen. Prominent stool in the proximal colon. The gallbladder has been removed. No organomegaly. IMPRESSION: No interval improvement ASSESSMENT AND PLAN: Ms. Aniyah Dubose is a 28-year-old woman with a history of opioid dependence, tobacco abuse, ileal Crohn disease, status post resection, complicated by abscess requiring prolonged antibiotics and exploratory laparoscopies x2, perianal disease, chronic constipation, medication noncompliance who presents with small bowel obstruction, likely from inflammatory versus stricturing Crohn's at her anastomosis. She is tolerating steroids and is on empiric antibiotics. NGT fell out last night and patient reports resolution of N/V and abdominal pain. Increased BS on exam. Will start clear liquids and home bowel regimen. Continue IVFs and serial abdominal exams. Surgery following; appreciate recs # SBO # Crohn's disease # Anemia: no overt bleeding # Leukocytosis: resolved Will follow with you. Please call with questions.
[2019-04-19] MEDS: SODIUM CHLORIDE 0.9% INJ SCH (23:46)
[2019-04-19] MEDS: PROTONIX IV SCH (23:46)
[2019-04-20] MEDS: ZOFRAN IV PRN ×2 (02:10→19:33)
[2019-04-20] MEDS: MORPHINE IV PRN ×2 (02:10→19:33)
[2019-04-20] MEDS: ZOSYN 3.375 GM in NS 50 ML IV SCH ×4 (06:35→23:20)
[2019-04-20] MEDS: SUBOXONE 8 MG/2 MG SL SCH (08:25)
[2019-04-20] MEDS: SOLU-MEDROL IV SCH (08:26)
[2019-04-20] MEDS: LEXAPRO PO SCH (08:26)
[2019-04-20] MEDS: BUSPAR PO SCH ×2 (08:26→19:59)
[2019-04-20] MEDS: MIRALAX PO SCH ×2 (08:27→17:21)
[2019-04-20] MEDS: NICODERM PATCH TD PRN (10:38)
--- NOTE | 2019-04-20 11:14 | Diag Imaging Result Doc PS360 ---
EXAM: KUB ABDOMEN 04/20/2019 HISTORY: Constipation TECHNIQUE: KUB COMMENT: Compared to 04/19/2019 there is slightly less stool in the ascending colon. There continues to be some gaseous dilatation of small bowel loops in the midabdomen. There is gas in the rectum. IMPRESSION: Improved constipation. The possibility of ileus cannot be excluded. Electronically signed by Kemar Ramirez 04/20/2019 11:11 AM
--- NOTE | 2019-04-20 11:24 | PROGRESS NOTE ---
DATE: 04/20/2019 SUBJECTIVE: Patient resting comfortably in bed, not in any obvious distress. OBJECTIVE: Vital Signs: Temperature 98.6 degrees, pulse 56, respiratory rate 18, blood pressure 110/66, oxygen saturation is 99%. HEENT: She is atraumatic, normocephalic. Cardiovascular: S1, S2. Respiratory: Has evidence of good air entry bilaterally. Abdomen: Soft, nontender. Bowel sounds are present. Extremities: No evidence of edema. Central Nervous System: No obvious focal deficits noted. LABORATORY DATA: Pending. ASSESSMENT AND PLAN: 1. Partial small-bowel obstruction. Improving. The patient is currently on clear liquid diet. Maintain the patient on intravenous fluids. Surgery team is following. 2. History of Crohn's disease. Continue steroids as well as antibiotics. Gastroenterology is following. 3. Anemia. Check iron studies, B12, as well as folate level. 4. Tobacco use history. Nicotine patch recommended. 5. History of opioid dependence. Continue Suboxone. 6. Deep vein thrombosis prophylaxis. Sequential compression devices. cc: Herbert Roldan MD MTDD
--- NOTE | 2019-04-20 11:45 | GASTROENTEROLOGY PROGRESS NOTE ---
DATE: 04/20/2019 SUBJECTIVE: Ms. Dubose is a 28-year-old female sitting in bed having her breakfast. The patient has denied any nausea, vomiting, or abdominal pain and has been able to tolerate her clear liquids well. OBJECTIVE: Vital Signs: Temperature 98.6 degrees, pulse is 56, respirations 18, blood pressure 110/66. The oxygen saturation is 99% on room air. Her weight is 122 pounds. BMI is 23.8 kg/m2. General: She is alert, oriented x3, and in no acute distress. HEENT: Pale conjunctivae, no icterus. Neck: Supple. Lungs: Clear to auscultation in anterior piña. Cardiovascular: The patient is bradycardic. Abdomen: Soft, nontender. Active bowel sounds heard in all 4 quadrants. Extremities: No clubbing, no cyanosis, no edema. Pedal pulses 2+ and present bilaterally. Neurologic: She is alert, oriented x3, and in no acute distress. DIAGNOSTIC DATA: An abdominal x-ray yesterday showed no interval improvement. IMPRESSION AND PLAN: Crohn's disease s/p resection Small bowel obstruction Anemia Constipation Tobacco abuse Opioid dependency Abdominal pain PLAN: Ms. Dubose is a 28-year-old female with a history of tobacco abuse and opioid dependency with Crohn disease, status post resection and chronic constipation. GI is following her for small bowel obstruction and exacerbation of her Crohn disease. KUB of the abdomen today showed improved constipation, but possibility of ileus. The patient is currently on clear liquid diet, and she is able to tolerate her diet well, we will continue with the clear liquids. She has denied any nausea, vomiting, or abdominal pain. Shilpi is receiving GI prophylaxis Protonix 40 mg IV daily. She is on antiemetic, Zofran, for nausea and vomiting. The patient is on antibiotic, Zosyn, We have increased her bowel regimen, MiraLAX 17 g to three times day and she is receiving Colace. The patient is also on steroid Solum-Medrol 60 mg IV daily for her Crohn's exacerbation. We will continue to monitor the patient and follow the plan of care per PCP. This plan was discussed with Dr. Romeo. Please call us for any further questions or concerns. Dictated by BERNARDA Franklin for Willis Romeo MD cc: Willis Romeo MD I have seen and examined the patient myself and I agree with the above plan of care. I have discussed the above with the patient and family at bedside and all questions were answered. Please call us with any further questions. MTDD
--- NOTE | 2019-04-20 11:49 | PROGRESS NOTE ---
DATE: 04/20/2019 SUBJECTIVE: Ms. Celestina Dubose is now hospital day #4 admitting with Crohn's exacerbation, and small bowel obstruction. She has had one previous abdominal operation which included a temporary ileostomy done in [place]. She has been noncompliant with her Crohn's treatment, and most recently has seen Dr. Romeo. She has been seen and followed by Dr. Khan during this hospitalization. She has been placed on IV antibiotics, and is receiving IV steroids which appear to clinically be helping her. Her NG tube has been out since yesterday. Her abdomen remains mostly soft. She has had some flatus, but no bowel movement. PLAN: The plans to advance her diet have been started. She is now on clear liquids. I have talked to her about her smoking. I have given her some reading information on Crohn's. Hopefully, medical treatment will prevent the need for surgery, and removal of more small bowel. cc: Ginny Mar MD
[2019-04-20 12:28] LABS: BASO# 0.01 X1000 (0.0-0.2); BASO% 0.1 % (0.0-0.8); EOS# 0.01 X1000 (0.0-0.7); EOS% 0.1 % (0.0-10.0); HEMATOCRIT 34.9 % (37.0-47.0); HEMOGLOBIN 10.8 g/dL (12.0-16.0); IMM GRAN# 0.03 X1000 (0.0-0.04); IMM GRAN% 0.4 % (0.0-0.5); LYMPH% 10.4 % (20.5-51.1); MCH 26.5 PG (27-31); MCHC 30.9 g/dL (33-37); MCV 85.7 FL (81-99); MONO# 0.17 X1000 (0.11-0.59); MONO% 2.2 % (1.7-9.3); MPV 9.3 FL (7.4-10.4); NEUT# 6.65 X1000 (1.4-6.5); NEUT% 86.8 % (42.2-75.2); PLT 261 X1000 (130-400); RBC 4.07 XMIL (4.2-5.4); WBC 7.67 X1000 (4.8-10.8)
[2019-04-20 13:16] LABS: AGAP 10; ALB/GLOB RATIO 1.3; ALBUMIN 3.9 g/dL (3.5-5.0); ALKALINE PHOSPHATASE 57 U/L (32-104); BUN 10 mg/dL (8-22); CALCIUM 8.7 mg/dL (8.8-10.2); CHLORIDE 103 mmol/L (98-107); COSMO 275; CREATININE 0.6 mg/dL (0.5-0.9); ESTIMATED GFR > 60; GLUCOSE 132 mg/dL (70-104); GOT 13 U/L (10-30); GPT 17 U/L (10-36); POTASSIUM 4.1 mmol/L (3.5-5.1); SODIUM 137 mmol/L (136-145); TCO2 24 mmol/L (25-35); TOTAL BILIRUBIN 0.45 mg/dL (0.20-1.00); TOTAL PROTEIN 6.8 g/dL (6.3-8.3)
[2019-04-20] MEDS ORDERED: COLACE PO ONE (14:35)
[2019-04-20] MEDS: COLACE PO SCH (19:59)
[2019-04-20] MEDS: PROTONIX IV SCH (23:19)
[2019-04-20] MEDS: SODIUM CHLORIDE 0.9% INJ SCH (23:19)
[2019-04-21] MEDS: ZOSYN 3.375 GM in NS 50 ML IV SCH ×2 (05:43→11:46)
[2019-04-21 07:07] LABS: IRON SATURATION 25 %; TIBC 278 ug/dL; TOTAL IRON 69 ug/dL (49-151); UNBOUND IRON 209 ug/dL (112-346)
[2019-04-21 07:25] LABS: FERRITIN 44 ng/mL (13-150)
[2019-04-21] MEDS: LEXAPRO PO SCH (08:00)
[2019-04-21] MEDS: BUSPAR PO SCH (08:00)
[2019-04-21] MEDS: MIRALAX PO SCH ×2 (08:00→14:04)
[2019-04-21] MEDS: COLACE PO SCH (08:00)
[2019-04-21] MEDS: SOLU-MEDROL IV SCH (08:01)
[2019-04-21] MEDS: SUBOXONE 8 MG/2 MG SL SCH (08:01)
[2019-04-21 11:41] VITALS: BP 94/47
--- NOTE | 2019-04-21 13:57 | GASTROENTEROLOGY PROGRESS NOTE ---
DATE: 04/21/2019 SUBJECTIVE: Ms. Dubose is a 28-year-old female sitting in bed, she has denied any nausea, vomiting, or abdominal pain. The patient also mentioned that she did have 5 bowel movements today which were mixed in consistency. OBJECTIVE: Vital Signs: Temperature 98.5 degrees, pulse is 73, respirations 20, blood pressure 94/47, oxygen saturation 99% on room air. The patient's weight is 122 pounds. BMI is 23.8 kg/m2. General: She is alert, oriented x3, and in no acute distress. HEENT: Pale conjunctivae. No icterus. PERRL. Neck: Supple. Lungs: Clear to auscultation in the anterior and posterior piña. Cardiovascular: Regular rate and rhythm. Abdomen: Soft, nontender, mildly distended. Active bowel sounds heard in all 4 quadrants. Extremities: No clubbing, no cyanosis, no edema. Pedal pulses 2+ present bilaterally. Neurologic: She is alert, oriented x3, and in no acute distress. DIAGNOSTIC DATA: The patient had an abdominal x-ray done yesterday and it showed improved constipation but possibility of ileus. IMPRESSION: 1. Crohn disease s/p resection. 2. Small bowel obstruction. 3. Anemia. 4. Constipation. 5. Tobacco abuse. 6. Opioid dependency. 7. Abdominal pain. PLAN: Ms. Dubose is a 28-year-old female with a history of tobacco abuse and opioid dependency, Crohn disease status post resection and chronic constipation. GI is following her for a small bowel obstruction and exacerbation of her Crohn disease. The patient's x-ray yesterday showed that her constipation has been improved. The patient did mention that she had almost 5 bowel movements today. The patient is currently on a clear liquid diet. We have changed her diet to GI soft diet. She has denied any nausea, vomiting, or abdominal pain. She is on GI prophylaxis, Protonix 40 mg IV daily. For her nausea and vomiting she is on antiemetic Zofran. The patient is also on steroid, Solu-Medrol, for her Crohn's exacerbation, and she is on antibiotic Zosyn. For her bowel regimen she is on MiraLAX 17 g and Colace 200 mg. If the the patient is able to tolerate her diet, she can be discharged home and patient can be started on PO prednisone for 6 weeks, tapering from 40 mg for 2 weeks, 30 mg for 2 weeks, 20 mg for 1 week, and 10 mg for 1 week, and then to be stopped. We will follow her up as an outpatient in 2 to 4 weeks. This plan was discussed with Dr. Khan. Please call us for any further questions or concerns. Dictated by EBRNARDA Franklin for Santos Khan MD Physician Attestation I have seen and examined the patient. I have discussed and reviewed the note by Marybeth MENCHACA and agree with findings and plan as documented. MTDD
--- NOTE | 2019-04-23 11:06 | DISCHARGE SUMMARY ---
ADMISSION DATE: 04/17/2019 DISCHARGE DATE: 04/21/2019 CONSULTATIONS: GI, Dr. Romeo. Surgery, Dr. Mar. PERTINENT STUDIES: CT of the abdomen and pelvis, which showed a partial small bowel obstruction due to stricture in the distal ileum. Repeat abdominal x-ray with improved constipation and gaseous distention still present but fairly minimal. DISCHARGE DIAGNOSES: 1. Partial small-bowel obstruction. 2. History of Crohn's disease. 3. Anemia. 4. Tobacco use. 5. Opioid dependence. HOSPITAL COURSE: This is a patient with a history of Crohn's disease and previous bowel resection, who presented with nausea and vomiting. She was found to have a partial small-bowel obstruction. She was treated conservatively with fluids and bowel rest. She was continued on IV steroids. She did respond and clinically improved, although her imaging continued to show a little bit of gaseous distention. The patient was started on a liquid diet and did well with that. Diet was further advanced, and she was tolerating a soft diet quite well at the time of discharge. She was continued on Suboxone. There is some question of whether she may have had a dental abscess a few days prior to admission, so she was continued on antibiotics with Zosyn during her hospitalization. It was felt by the time of discharge, she had likely finished her course of treatment for that. No abscess was clinically evident during hospitalization, and it was likely mostly treated prior to admission. 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 DISCHARGE VITALS: Temp 98.5 degrees, pulse 73, respirations 20, blood pressure 94/47, O2 saturation 99% on room air. DISCHARGE DIET: Regular. DISCHARGE MEDICATIONS: Buspirone 50 mg p.o. daily, Lexapro 10 mg p.o. q.a.m., omeprazole 40 mg p.o. q.a.m., Suboxone as previously prescribed, MiraLAX 17 g daily, prednisone taper with 40 mg x2 weeks, then 30 mg x2 weeks, then 20 mg x1 week, then 10 mg x1 week. PLAN: The patient will be discharged home on an extended steroid taper. The patient is to follow up with PCP and GI. The patient is to return for care if nausea and vomiting reoccur. The patient was strongly counseled to stop smoking. Greater than 30 minutes was spent in arranging discharge and counseling the patient.
== END 2019-04-21 15:09 | disposition home or self-care (01) | DRG 386 ==
LOC: SUPCPDRO → ED 15:56 → 4N 23:56 → SUATTDRO 23:56
PROVIDERS: ATTEND Internal Medicine